=== PATIENT | male | born 1960 | race African-American/Black ===

== ENCOUNTER 2021-12-04 18:24 | Emergency (ER) | payer OTHER ==
[~2021-12-04] VITALS: Ht 170.2 cm; Wt 77.0 kg
[2021-12-04 18:38] VITALS: BP 98/61
== END 2021-12-04 20:41 | disposition left against medical advice (07) ==
LOC: ER 18:24
DX: Z53.21 Procedure and treatment not carried out due to patient leaving prior to being seen by health care provider (principal)

== ENCOUNTER 2021-12-04 22:13 | Emergency (ER) | payer OTHER | END 2021-12-04 23:28 | disposition left against medical advice (07) | LOC: ER 22:13 | DX: Z53.21 Procedure and treatment not carried out due to patient leaving prior to being seen by health care provider (principal) ==